=== PATIENT | male | born 1965 | race Caucasian/White ===

== ENCOUNTER 2017-04-27 06:10 | Day surgery (SDC) | payer OTHER ==
[~2017-04-27] VITALS: Ht 172.7 cm; Wt 115.9 kg
[~2017-04-27 06:10] MED LIST: AMLO10 PO; ASPI81CH PO; ATOR10 PO; LOSHYD100 PO; NEBI5 PO
[2017-04-27] MEDS ORDERED: METO25ER (07:41)
== END 2017-04-27 12:39 | disposition home or self-care (01) ==
LOC: ORSCSDS 06:10
PROVIDERS: Orthopaedic Surgery
PROC: 0LU14JZ Supplement Right Shoulder Tendon with Synthetic Substitute, Percutaneous Endoscopic Approach (ICD-10-PCS; principal; 2017-04-27 08:45)
DX: S46.011A Strain of muscle(s) and tendon(s) of the rotator cuff of right shoulder, initial encounter (principal); M75.51 Bursitis of right shoulder; I10 Essential (primary) hypertension; K21.9 Gastro-esophageal reflux disease without esophagitis; E66.01 Morbid (severe) obesity due to excess calories; Z68.38 Body mass index [BMI] 38.0-38.9, adult; Z79.899 Other long term (current) drug therapy; Z79.82 Long term (current) use of aspirin
CPT/HCPCS: C1713; J0171; J0690; J1100; J2250; J2370; J2405; J2710; J2795; J3010; J7120; Q4128